=== PATIENT | female | born 1990 | race Caucasian/White ===

== ENCOUNTER 2021-02-03 09:05 | Emergency (ER) | payer OTHER ==
[~2021-02-03] VITALS: Ht 152.4 cm; Wt 76.2 kg
[2021-02-03 09:12] VITALS: BP 125/88
--- NOTE | 2021-02-03 09:19 | NUR ---
PT ambulated to bed 03.
--- NOTE | 2021-02-03 09:36 | NUR ---
30 Y/O F BIB SELF FROM HOME, PATIENT PRESENTS TO ED WITH ABD PAIN IN RLQ THAT RADIATES TO R FLANK AREA. PT STATES PAIN STARTED YESTERDAY, DENIES INJURY. DENIES N/V/D; SKIN IS PINK/WARM/DRY; AAOX4 WITH EVEN AND STEADY GAIT, PAIN INCREASES WITH MOVEMENT; LUNGS CLEAR BL; HR EVEN AND REGULAR; PT DENIES ANY FEVER, CP, SOB, OR COUGH AT THIS TIME; PATIENT STATES PAIN OF 6/10 AT THIS TIME; VSS; PATIENT POSITIONED FOR COMFORT; HOB ELEVATED; BEDRAILS UP X2; BED DOWN. ER MD MADE AWARE OF PT STATUS. PT ALSO STATES SHE WOKE UP WITH RASH ON HER HANDS AND FACE. PMH: DENIES NKA MED: OTC ALLERGY MED
--- NOTE | 2021-02-03 09:46 | NUR ---
ERMD at bedside evaluating PT.
[2021-02-03] MEDS ORDERED: KETOROLAC 30 MG/ML VIAL IM ONE (09:55)
[2021-02-03] MEDS ORDERED: diazePAM 5 MG TAB PO ONE (09:55)
--- NOTE | 2021-02-03 10:02 | NUR ---
XRAY TAKING PT TO IMAGING.
[2021-02-03 10:18] LABS: BASOPHILS # (AUTO) 0.1 K/uL (0.00-0.22); BASOPHILS % (AUTO) 0.7 % (0.0-2.0); EOSINOPHILS # (AUTO) 0.6 K/uL (0-0.4); EOSINOPHILS % (AUTO) 7.5 % (0.0-4.0); HEMATOCRIT 40.9 % (36-48); LYMPHOCYTES # (AUTO) 2.9 K/uL (2.5-16.5); LYMPHOCYTES % (AUTO) 34.7 % (20.5-51.1); MEAN CORPUSCULAR HEMOGLOBIN 34 pg (27-31); MEAN CORPUSCULAR HGB CONC 34 g/dL (33-37); MEAN CORPUSCULAR VOLUME 99.5 fL (80-94); MONOCYTES # (AUTO) 0.8 K/uL (0.8-1.0); MONOCYTES % (AUTO) 9.4 % (1.7-9.3); NEUTROPHILS % (AUTO) 47.7 % (42.2-75.2); PLATELET COUNT (AUTO) 244 K/uL (140-450); RED BLOOD CELL COUNT(AUTO) 4.11 MIL/uL (4.20-5.40); RED CELL DISTRIBUTION WIDTH 12.7 % (11.6-13.7); WHITE BLOOD COUNT (AUTO) 8.3 K/uL (4.8-10.8)
[2021-02-03 10:27] LABS: APPEARANCE,URINE CLEAR (CLEAR); BILIRUBIN,URINE NEGATIVE (NEGATIVE); BLOOD, URINE NEGATIVE (NEGATIVE); COLOR,URINE YELLOW (YELLOW); LEUKOCYTE ESTERASE ,URINE 1+ (NEGATIVE); NITRITE, URINE NEGATIVE (NEGATIVE); UGLUCOSE NEGATIVE (NEGATIVE)
[2021-02-03 10:33] LABS: ALBUMIN 3.7 g/dL (3.4-5.0); CREATININE 0.6 mg/dL (0.6-1.3); POTASSIUM 4.4 mmol/L (3.5-5.1); TOTAL BILIRUBIN 0.6 mg/dL (0.0-1.0)
[2021-02-03 10:34] LABS: RBC,URINE 0-5 /HPF (0-5)
[2021-02-03 10:35] LABS: WBC,URINE 0-5 /HPF (0-5)
--- NOTE | 2021-02-03 10:38 | NUR ---
Ultrasound at bedside.
[2021-02-03 10:44] LABS: ANION GAP 12.2 (8-16); CARBON DIOXIDE 25.2 mmol/L (21-32)
[2021-02-03] MEDS ORDERED: NAPR-54 PO (12:42)
[2021-02-03] MEDS ORDERED: BEN10 PO (12:42)
[2021-02-03 13:00] VITALS: BP 125/88
--- NOTE | 2021-02-03 13:01 | NUR ---
Patient discharged with v/s stable. Written and verbal after care instructions given and explained. Patient alert, oriented and verbalized understanding of instructions. Ambulatory with steady gait. All questions addressed prior to discharge. ID band removed. Patient advised to follow up with PMD. Rx of DICYCLOMINE, NAPROXEN given. Patient educated on indication of medication including possible reaction and side effects. Opportunity to ask questions provided and answered.
== END 2021-02-03 13:01 | disposition home or self-care (01) ==
LOC: MED 09:05
DX: R10.31 Right lower quadrant pain (principal); R10.2 Pelvic and perineal pain
CPT/HCPCS: 36415; 74176; 76830; 80053; 81001; 81025; 83690; 85025; 87086; 96372; 99284; J1885